=== PATIENT | female | born 1980 | race Caucasian/White ===

== ENCOUNTER → 2019-02-01 | Outpatient (CLI) | payer BC ==
--- NOTE | 2019-02-01 18:39 | MR ---
EXAMINATION TYPE: MR brain wo con DATE OF EXAM: 02/01/2019 COMPARISON: MRI brain February 12, 2012. HISTORY: recurring vertigo, diplopia TECHNIQUE: Multiplanar, multisequence imaging of the brain and brainstem is performed without IV cont rast. FINDINGS: Diffusion weighted images demonstrate no evidence of a recent infarct or other diffusion abnormality. There is no extraaxial fluid collection or significant white matter signal abnormality. The ventricu lar system and cisternal spaces are normal in size and appearance. The brain volume is age appropria te. Midline structures demonstrate normal morphology. The craniocervical junction appears within normal limits. Normal vascular flow voids are present. Artifact distortion at level of the globes is again s een. Visualized paranasal sinuses are grossly clear. No suspicious fluid signal bilateral mastoid air cells. IMPRESSION: No suspicious new or acute findings seen to account for patient's symptoms of recurrent v ertigo and diplopia on noncontrast MRI.
== END | disposition home or self-care (01) ==
LOC: RADMRIMAIN 17:59
PROVIDERS: ATTEND Family Medicine
DX: H53.2 Diplopia (principal); H93.13 Tinnitus, bilateral; H81.13 Benign paroxysmal vertigo, bilateral
CPT/HCPCS: 70551

== ENCOUNTER → 2020-09-20 | Outpatient (CLI) | payer BC ==
--- NOTE | 2020-09-21 13:49 | MM ---
Reason for exam: screening (asymptomatic). Last mammogram was performed 7 years and 2 months ago. History: Retro-pectoral silicone gel implants in both breasts, 2009. Physical Findings: A clinical breast exam by your physician is recommended on an annual basis and results should be correlated with mammographic findings. MG 3D Screen Mammo Imp/Cad Bilateral CC and MLO view(s) were taken. Prior study comparison: July 09, 2013, bilateral digital screening mammo w/CAD. The breast tissue is heterogeneously dense. This may lower the sensitivity of mammography. Finding: There is a 7 mm equal density (isodense), lobulated mass in the posterior, central position of the right breast. ASSESSMENT: Incomplete: need additional imaging evaluation, BI-RAD 0 RECOMMENDATION: Special view mammogram and ultrasound of the right breast. [facility] will attempt to contact patient to return for supplemental views and ultrasound.
== END | disposition home or self-care (01) ==
LOC: RADMAMWWP 14:53
PROVIDERS: ATTEND Obstetrics & Gynecology Obstetrics
DX: Z12.31 Encounter for screening mammogram for malignant neoplasm of breast (principal)
CPT/HCPCS: 77063; 77067

== ENCOUNTER → 2020-10-05 | Outpatient (CLI) | payer BC ==
--- NOTE | 2020-10-05 09:54 | MM ---
Reason for exam: additional evaluation requested from abnormal screening. Last mammogram was performed less than 1 month ago. History: Retro-pectoral silicone gel implants in both breasts, 2009. Took hormonal contraceptives for 12 years. Physical Findings: Nurse did not find any significant physical abnormalities on exam. MG 3D Work Up W/Cad W/Imp RT Spot compression CC, spot compression MLO, and ML view(s) were taken of the right breast. Prior study comparison: September 20, 2020, bilateral MG 3d screen mammo imp/cad. July 09, 2013, bilateral digital screening mammo w/CAD. The breast tissue is heterogeneously dense. This may lower the sensitivity of mammography. Areas of nodularity upper outer quadrant. Ultrasound recommended. These results were verbally communicated with the patient and result sheet given to the patient on 10/05/20. ASSESSMENT: Incomplete: need additional imaging evaluation, BI-RAD 0 RECOMMENDATION: Ultrasound of the right breast.
--- NOTE | 2020-10-05 09:56 | USB ---
Reason for exam: additional evaluation requested from abnormal screening. History: Retro-pectoral silicone gel implants in both breasts, 2008. Took hormonal contraceptives for 12 years. US Breast Workup Limited RT Right limited breast ultrasound including focal area of concern, retroareolar and axilla demonstrates a 1.6 x 0.8 x 0.3cm oval, irregular, cystic lesion at 9 o'clock, a 1.2 x 0.6 x 0.4cm oval, cystic cluster at 11 o'clock, a 0.7 x 0.8 x 0.5cm oval, lobular, cystic lesion at 11 o'clock and a 0.8 x 0.8 x 0.2cm oval, cystic cluster at 11 o'clock. These results were verbally communicated with the patient and result sheet given to the patient on 10/05/20. ASSESSMENT: Benign, BI-RAD 2 RECOMMENDATION: Return to routine screening mammogram schedule for both breasts.
== END | disposition home or self-care (01) ==
LOC: RADMAMWWP 06:55
PROVIDERS: ATTEND Obstetrics & Gynecology Obstetrics
DX: R92.8 Other abnormal and inconclusive findings on diagnostic imaging of breast (principal); N60.01 Solitary cyst of right breast
CPT/HCPCS: 77061; 77065